=== PATIENT | female | born 1990 | race Caucasian/White ===

== ENCOUNTER 2019-06-01 19:18 | Inpatient (IN) ==
[2019-06-01 17:26] LABS: Bilirubin,Urine Negative (Negative); Blood,Urine Negative (Negative); Clarity,Urine Cloudy (Clear); Color,Urine Yellow (Yellow); Glucose,Urine (UA) Normal (Normal); Hematocrit 39.4 % (35.3-44.9); Hemoglobin 12.9 g/dL (11.5-15.4); Immature Granulocytes % 0.8 % (0-4); Ketones,Urine Negative (Negative); Leukocyte Esterase,Urine Moderate (Negative); Lymphocytes % 21.7 %; Mean Corpuscular HGB Conc 32.7 g/dL (31.6-35.5); Mean Corpuscular Hemoglobin 29.1 pg (28.0-33.3); Mean Corpuscular Volume 88.7 fL (83.0-100.0); Mean Platelet Volume 11.1 fL (9.4-12.4); Nitrite,Urine Negative (Negative); Platelet Count 259 K/mcL (140-400); Protein,Urine Negative (Neg-Trace); Red Blood Count 4.44 M/mcL (3.82-4.97); Segmented Neutrophils % 68.7 %; Specific Gravity,Urine 1.008 (1.010-1.025); Urobilinogen,Urine Normal (Normal); White Blood Count 9.8 K/mcL (4.3-11.1)
[2019-06-01 17:27] LABS: Basophils % 0.4 %; Eosinophils # 0.1 K/mcL (0.0-0.6); Eosinophils % 0.6 %; Lymphocytes # 2.1 K/mcL (0.6-4.6); Monocytes # 0.8 K/mcL (0.0-1.3); Monocytes % 7.8 %; Neutrophils # 6.7 K/mcL (1.6-8.9)
[2019-06-01 17:29] LABS: Bacteria,Urine None Seen per hpf (None-Few); Hyaline Casts,Urine None Seen per lpf (None-Few); RBC,Urine 0-3 per hpf (0-3); Squamous Epithelial Cell,Urine Many per lpf (None-Few)
[2019-06-01 17:40] LABS: Protein/Creatinine Ratio,Urine 0.24 mg/mg (0.00-0.20)
[2019-06-01 17:55] LABS: Alanine Aminotransferase 15 Units/L (7-52); Aspartate Amino Transferase 18 Units/L (13-39); BUN/Creatinine Ratio 15 (6-26); Blood Urea Nitrogen 9 mg/dL (6-20); Lactate Dehydrogenase 140 Units/L (140-271); Uric Acid 5.1 mg/dL (2.3-7.6); eGFR For African Americans > 60 (> 60); eGFR For Non-African Americans > 60 (> 60)
[~2019-06-01 19:18] MED LIST: *HR* FentaNYL (PF) 100 MCG/2 ML VIAL IVP PRN; Famotidine 20 MG/2 ML VIAL IVP PRN; Lidocaine 1% 20 ML MDV INFILT PRN; Metoclopramide 10 MG/2 ML VIAL IVP PRN; Naloxone 0.4 MG/ML INJ IVP PRN; Ondansetron 4 MG/2 ML VIAL IVP PRN
[2019-06-01 20:07] LABS: Basophils % 0.3 %; Eosinophils # 0.1 K/mcL (0.0-0.6); Eosinophils % 0.6 %; Hematocrit 38.8 % (35.3-44.9); Hemoglobin 13.2 g/dL (11.5-15.4); Immature Granulocytes % 0.6 % (0-4); Lymphocytes # 2.1 K/mcL (0.6-4.6); Lymphocytes % 21.6 %; Mean Corpuscular Hemoglobin 30.5 pg (28.0-33.3); Mean Corpuscular Volume 89.6 fL (83.0-100.0); Mean Platelet Volume 12.1 fL (9.4-12.4); Monocytes # 0.7 K/mcL (0.0-1.3); Monocytes % 7.4 %; Platelet Count 291 K/mcL (140-400); Red Blood Count 4.33 M/mcL (3.82-4.97); Red Cell Distribution Width 13.1 % (11.5-14.5); Segmented Neutrophils % 69.5 %; White Blood Count 9.7 K/mcL (4.3-11.1)
[2019-06-01 20:18] LABS: Amphetamine Screen,Urine Negative ng/mL (Cutoff=1000); Barbiturate Screen,Urine Negative ng/mL (Cutoff=200); Benzodiazepines Screen,Urine Negative ng/mL (Cutoff=200); Cannabinoid Screen,Urine Negative ng/mL (Cutoff = 50); Cocaine Screen,Urine Negative ng/mL (Cutoff= 300); Opiate Screen,Urine Negative ng/mL (Cutoff=300); Phencyclidine Screen,Urine Negative ng/mL (Cutoff=25)
[2019-06-01 20:26] LABS: Neutrophils # 6.7 K/mcL (1.6-8.9)
[2019-06-01] MEDS ORDERED: miSOPROStoL 25 MCG TABLET PO PRN (20:34)
[2019-06-01] MEDS ORDERED: EPHEDrine 50 MG/ML VIAL IVP PRN (20:36)
[2019-06-01] MEDS ORDERED: Epidural Premix (fent/bupiv) 110 ML EP SCH (20:45)
[2019-06-01] MEDS: Ringers Solution, Lactated 1,000 ML IVC SCH (22:33)
[2019-06-02] MEDS ORDERED: *HR* FentaNYL (PF) 100 MCG/2 ML VIAL ONE (04:18)
[2019-06-02] MEDS ORDERED: Ropivacaine/PF 0.2% 20 ML VIAL ONE (04:19)
[2019-06-02] MEDS ORDERED: Oxytocin 20 units/ LR 1000 mL 20 UNIT/1,000 ML BAG IVC SCH (05:15)
[2019-06-02] MEDS ORDERED: Benzocaine/Menthol 56 GM AEROSOL SPRAY TP PRN (08:09)
[2019-06-02] MEDS ORDERED: Acetaminophen 325 MG TABLET PO PRN (08:09)
[2019-06-02] MEDS ORDERED: Lanolin 7 G OINT...G. TP PRN (08:09)
[2019-06-02] MEDS: Prenatal Vit/FA 1 EACH TABLET PO SCH (10:29)
[2019-06-02] MEDS: Ibuprofen 600 MG TABLET PO PRN ×2 (15:20→22:12)
[2019-06-02] MEDS: Ringers Solution, Lactated 1,000 ML IVC SCH (19:43)
[2019-06-02] MEDS: Oxytocin 20 units/ LR 1000 mL 20 UNIT/1,000 ML BAG IVC SCH (19:43)
[2019-06-03] MEDS: Ibuprofen 600 MG TABLET PO PRN (07:04)
[2019-06-03 08:21] VITALS: BP 114/76
[2019-06-03] MEDS: Prenatal Vit/FA 1 EACH TABLET PO SCH (10:06)
== END 2019-06-03 12:40 | disposition home or self-care (01) ==
LOC: 1NENULAB → 1NENUOBS 06-02 09:28
PROVIDERS: ADMIT Obstetrics & Gynecology; ATTEND Obstetrics & Gynecology

== ENCOUNTER 2021-10-08 14:33 | Inpatient (IN) ==
[2021-10-08] MEDS ORDERED: Famotidine 20 MG/2 ML VIAL IVP PRN (14:54)
[2021-10-08] MEDS ORDERED: Naloxone 0.4 MG/ML INJ IVP PRN (14:54)
[2021-10-08] MEDS ORDERED: Metoclopramide 10 MG/2 ML VIAL IVP PRN (14:54)
[2021-10-08] MEDS ORDERED: *HR* Nalbuphine 10 MG/ML AMPUL IV PRN (14:54)
[2021-10-08] MEDS ORDERED: Ondansetron 4 MG/2 ML VIAL IVP PRN (14:56)
[2021-10-08] MEDS ORDERED: Ringers Solution, Lactated 1,000 ML IVC SCH (15:00)
[2021-10-08] MEDS ORDERED: EPHEDrine 50 MG/ML VIAL IVP PRN (15:35)
[2021-10-08] MEDS ORDERED: Epidural Premix (fent/bupiv) 110 ML EP SCH (15:45)
[2021-10-08 16:43] LABS: Basophils % 0.3 %; Eosinophils # 0.1 K/mcL (0.0-0.6); Eosinophils % 0.4 %; Hematocrit 38.6 % (35.3-44.9); Hemoglobin 12.8 g/dL (11.5-15.4); Immature Granulocytes % 0.7 % (0-4); Lymphocytes % 17.3 %; Mean Corpuscular HGB Conc 33.2 g/dL (31.6-35.5); Mean Corpuscular Hemoglobin 28.7 pg (28.0-33.3); Mean Corpuscular Volume 86.5 fL (83.0-100.0); Mean Platelet Volume 10.6 fL (9.4-12.4); Monocytes # 0.6 K/mcL (0.0-1.3); Monocytes % 5.5 %; Neutrophils # 8.6 K/mcL (1.6-8.9); Platelet Count 268 K/mcL (140-400); Red Blood Count 4.46 M/mcL (3.82-4.97); Segmented Neutrophils % 75.8 %; White Blood Count 11.4 K/mcL (4.3-11.1)
[2021-10-08 16:49] LABS: Amphetamine Screen,Urine Negative ng/mL (Cutoff=1000); Barbiturate Screen,Urine Negative ng/mL (Cutoff=200); Benzodiazepines Screen,Urine Negative ng/mL (Cutoff=200); Cannabinoid Screen,Urine Negative ng/mL (Cutoff = 50); Cocaine Screen,Urine Negative ng/mL (Cutoff= 300); Opiate Screen,Urine Negative ng/mL (Cutoff=300); Phencyclidine Screen,Urine Negative ng/mL (Cutoff=25)
[2021-10-08] MEDS ORDERED: Oxytocin 30 UNIT/503 ML BAG IVC SCH (17:00)
[2021-10-09] MEDS ORDERED: Ropivacaine/PF 0.2% 20 ML VIAL ONE (00:18)
[2021-10-09] MEDS ORDERED: Ropivacaine/PF 0.5% 30 ML VIAL ONE (00:18)
[2021-10-09] MEDS ORDERED: OXYTOCIN/RINGERS LACTATE 10 UNIT/166.6 ML BAG IVC ONE (04:03)
[2021-10-09] MEDS ORDERED: Benzocaine/Menthol 56 GM AEROSOL SPRAY TP PRN (04:03)
[2021-10-09] MEDS ORDERED: Oxytocin 30 UNIT/503 ML BAG IVC SCH (04:03)
[2021-10-09] MEDS ORDERED: Ondansetron ODT 4 MG TAB.RAPDIS SL PRN (04:03)
[2021-10-09] MEDS ORDERED: Lanolin 7 G OINT...G. TP PRN (04:03)
[2021-10-09] MEDS: Ibuprofen 600 MG TABLET PO SCH ×4 (04:13→20:18)
[2021-10-09] MEDS: Acetaminophen 325 MG TABLET PO SCH ×4 (04:14→20:18)
[2021-10-09] MEDS ORDERED: Prenatal Vit/FA 1 EACH TABLET PO SCH (09:00)
[2021-10-09 21:30] VITALS: TEMP 97.6; O2SAT 98
[2021-10-10] MEDS: Ibuprofen 600 MG TABLET PO SCH (05:46)
[2021-10-10] MEDS: Acetaminophen 325 MG TABLET PO SCH (05:47)
[2021-10-10 06:56] VITALS: BP 120/74; PULSE 70
== END 2021-10-10 11:28 | disposition home or self-care (01) | DRG 807 ==
LOC: 1NENULAB 14:33 → 1NENUOBS 10-09 03:46
PROVIDERS: ADMIT Obstetrics & Gynecology; ATTEND Obstetrics & Gynecology